=== PATIENT | female | born 1990 | race Caucasian/White ===

== ENCOUNTER 2018-11-14 18:02 | Emergency (ER) | payer MEDICAID ==
--- NOTE | 2018-11-14 18:55 | EDM.PDOC ---
ED HPI GENERAL MEDICAL PROBLEM - General Chief Complaint: Abdominal Pain Stated Complaint: ABD PAIN Time Seen by Provider: 11/14/18 18:45 Source of Information: Reports: Patient History Limitations: Reports: No Limitations - History of Present Illness INITIAL COMMENTS - FREE TEXT/NARRATIVE: patient presents describing right lower quadrant abdominal pain which has developed over the course of the day. She has a history of celiac disease and did eat some type of seeds yesterday, November 13, however pain from a celiac flair is usually different than what she feels at this time. It is located along the right lower quadrant region of the abdomen and does not radiate. it is worse when she is ambulatory and better if she is supine or sitting.She rates it 5/10 intensity. she has some nausea but no vomiting. No particular bloating feeling. No diarrhea although she tends towards constipation instead. Because pain did not improve today, she presented tonight. Onset: Today Duration: Hour(s): (8) Location: Reports: Abdomen Quality: Reports: Ache, Burning Severity: Moderate Improves with: Reports: Rest Worsens with: Reports: Movement. Denies: Rest Context: Reports: Activity Associated Symptoms: Reports: Nausea/Vomiting - Related Data Allergies Allergy/AdvReac Type Severity Reaction Status Date / Time sumatriptan [From Imitrex] Allergy Swelling Verified 11/14/18 18:27 Home Meds: Home Meds ClonazePAM [KlonoPIN] 11/14/18 [History] DULoxetine [Cymbalta] 11/14/18 [History] Past Medical History - Past Surgical History HEENT Surgical History: Reports: Myringotomy w Tube(s) GI Surgical History: Reports: Cholecystectomy Female Surgical History: Reports: Hysterectomy Social & Family History - Tobacco Use Smoking Status *Q: Never Smoker ED ROS GENERAL - Review of Systems Review Of Systems: See Below Constitutional: Reports: No Symptoms GI/Abdominal: Reports: Abdominal Pain ED EXAM, GI/ABD - Physical Exam Exam: See Below Text/Narrative:: Patient is lying supine on the exam table in room 11 with hips and knees flexed using her cell phone. Exam Limited By: No Limitations General Appearance: Alert Respiratory/Chest: No Respiratory Distress GI/Abdominal Exam: Soft, No Distention, Tender (Pain with palpationin the vicinity of McBurney's point. there is minimal discomfort in the left upper quadrant.) Back Exam: Normal Inspection Course - Vital Signs Text/Narrative:: Patient will receive Toradol 30 mg IV along with normal saline 500 mL per hour. We'll do ultrasound exam of the lower abdomen. it is possible this could be pain from ovulation however she states that in the past that felt differently than this does. Depending on other findings, appendicitis is a possibility and she might require CT scanning. her labs are unremarkable. The ultrasound exam showed a normal-appearing left ovary however the right ovary could not be seen because of the amount of stool in the ascending colon. No free fluid was seen however. I discussed the option of CT scanning at this time versus having her use something at home to clean out the intestines. She chose the latter. I will have her use magnesium citrate twice overnight to help relieve her stool burden. She should increase daily fiber intake compatible with her celiac situation. Return to emergency Department if not improved following the above and in particular if pain worsens. If she returns, she will need CT scanning. Questions answered. Last Recorded V/S: Last Vital Signs Temp 35.9 C 11/14/18 18:34 Pulse 87 11/14/18 18:34 Resp 14 11/14/18 18:34 BP 119/71 11/14/18 18:34 Pulse Ox 98 11/14/18 18:34 Departure - Departure Time of Disposition: 21:09 Disposition: Home, Self-Care 01 Condition: Good Clinical Impression: Abdominal pain - Discharge Information *PRESCRIPTION DRUG MONITORING PROGRAM REVIEWED*: Not Applicable *COPY OF PRESCRIPTION DRUG MONITORING REPORT IN PATIENT JANAY: Not Applicable Instructions: Abdominal Pain, Adult, [id number] Care Plan Goals: Purchase 2 bottles of magnesium citrate. Drink the first bottle over an hour and follow it with an equal volume of water or apple juice. 2 or more hours later, drink the second bottle in the same manner. If your pain resolves, increase dietary fiber to help keep you more regular. If pain does not change and especially if pain worsens, return to this department. - Problem List & Annotations (1) Abdominal pain SNOMED Code(s): 41290639 Code(s): R10.9 - UNSPECIFIED ABDOMINAL PAIN Status: Acute Priority: Low Current Visit: Yes Qualifiers: Abdominal location: right lower quadrant Qualified Code(s): R10.31 - Right lower quadrant pain - Problem List Review Problem List Initiated/Reviewed/Updated: Yes - Assessment/Plan Assessment:: right lower quadrant abdominal pain with moderate stool burden. Plan: purchase 2 bottles of magnesium citrate. Drink the first bottle over an hour and follow it with an equal volume of water or apple juice. 2 or more hours later, drink the second bottle in the same manner. If your pain resolves, increase dietary fiber to help keep you more regular. If pain does not change and especially if pain worsens, return to this department.
[2018-11-14] MEDS ORDERED: Sodium Chloride 0.9% 10 ML Syringe FLUSH PRN (18:56)
[2018-11-14] MEDS ORDERED: Ketorolac 30 MG/ML SDV IVPUSH ONE (18:57)
[2018-11-14] MEDS ORDERED: Sodium Chloride 0.9% 1,000 ML IV ONE (19:04)
--- NOTE | 2018-11-14 20:38 | CRLUS ---
INDICATION: Right lower quadrant pain COMPARISON: none TECHNIQUE: 2D barnes scale and color Doppler images were acquired of the pelvis using a transabdominal and transvaginal approach. FINDINGS: The uterus is surgically absent. The left ovary demonstrates normal follicular development. The right ovary is not visualized and the left ovary measures 2.8 x 1.8 x 1.9 centimeters. The left ovary demonstrates normal arterial and venous blood flow on color Doppler analysis. There are no suspicious fluid collections within the cul-de-sac. IMPRESSION: The right ovary is not visualized. The appendix is not visualized. The uterus is surgically absent. No adnexal mass or free fluid. Normal left ovary. Dictated by Jay Cordero MD @ Nov 14 2018 8:34PM Signed by Dr. Jay Cordero @ Nov 14 2018 8:36PM
--- NOTE | 2018-11-17 09:44 | CRLUS ---
Final Report: INDICATION: Right lower quadrant pain COMPARISON: none TECHNIQUE: 2D barnes scale and color Doppler images were acquired of the pelvis using a transabdominal and transvaginal approach. FINDINGS: The uterus is surgically absent. The left ovary demonstrates normal follicular development. The right ovary is not visualized and the left ovary measures 2.8 x 1.8 x 1.9 centimeters. The left ovary demonstrates normal arterial and venous blood flow on color Doppler analysis. There are no suspicious fluid collections within the cul-de-sac. IMPRESSION: The right ovary is not visualized. The appendix is not visualized. The uterus is surgically absent. No adnexal mass or free fluid. Normal left ovary. Dictated by Jay Cordero MD @ Nov 14 2018 8:34PM Signed by: Jay Cordero MD @11/14/2018 8:36:39 PM (Electronic Signature) MTDD
== END 2018-11-14 21:19 | disposition home or self-care (01) ==
LOC: JP.ED 18:02
DX: R10.31 Right lower quadrant pain (principal); R19.5 Other fecal abnormalities; Z88.8 Allergy status to other drugs, medicaments and biological substances; Z79.899 Other long term (current) drug therapy
CPT/HCPCS: 36415; 76830; 76856; 80048; 81001; 85025; 96361; 96374; 99284; J1885; J7030